=== PATIENT | female | born 1985 | race Caucasian/White ===

== ENCOUNTER 2023-02-09 14:35 | Inpatient (IN) | payer OTHER ==
[2023-02-09 15:03] VITALS: BMI 18.3
[2023-02-09] MEDS ORDERED: BISMUTH SUBSALICYLATE 524 MG/30 ML PO PRN (19:51)
[2023-02-09] MEDS ORDERED: ACETAMINOPHEN 325 MG TABLET (FP) PO PRN (19:51)
[2023-02-09] MEDS ORDERED: POLYETHYLENE GLYCOL (HEALTHYLAX) 3350 17 GM PACKET PO PRN (19:51)
[2023-02-09] MEDS ORDERED: NICOTINE POLACRILEX 4 MG GUM BUC PRN (19:51)
[2023-02-09] MEDS ORDERED: MAG HYDROX/AL HYDROX/SIMETH 30 ML UNIT-DOSE CUP PO PRN (19:51)
[2023-02-09] MEDS ORDERED: DICYCLOMINE HCL 10 MG CAPSULE PO PRN (19:51)
[2023-02-09] MEDS ORDERED: MAGNESIUM HYDROX 2400MG/30ML ORAL SUSPENSION 30 ML CUP PO PRN (19:51)
[2023-02-09] MEDS ORDERED: NALOXONE HCL (KLOXXADO) 8 MG SPRAY NS PRN (19:51)
[2023-02-09] MEDS ORDERED: BENZOCAINE/MENTHOL (CHLORASEPTIC ) LOZENGE MM PRN (19:51)
[2023-02-09] MEDS ORDERED: BENZONATATE 200 MG CAPSULE PO PRN (19:51)
[2023-02-09] MEDS ORDERED: NALOXONE HCL 0.4 MG/ML VIAL IM PRN (19:51)
[2023-02-09] MEDS ORDERED: LOPERAMIDE HCL 2 MG CAPSULE PO PRN (19:51)
[2023-02-09] MEDS ORDERED: IBUPROFEN 400 MG TABLET (FP) PO PRN (19:51)
[2023-02-09] MEDS ORDERED: guaiFENesin 600 MG TABLET.ER (FP) PO PRN (19:51)
[2023-02-09] MEDS ORDERED: methaDONE HCL 10 MG TABLET (FOR DETOX USE ONLY) PO ONE (20:39)
[2023-02-09] MEDS ORDERED: cloNIDine HCL 0.1 MG TABLET PO PRN (20:39)
[2023-02-09] MEDS ORDERED: methaDONE HCL 10 MG TABLET (FOR DETOX USE ONLY) ONE (21:10)
[2023-02-09] MEDS: METHOCARBAMOL 500 MG TABLET PO PRN (23:13)
[2023-02-09] MEDS: MELATONIN 5 MG TABLETS PO SCH (23:13)
[2023-02-09] MEDS: clonazePAM 0.5 MG ODT TABLETS SL PRN (23:13)
[2023-02-09] MEDS: THIAMINE HCL 100 MG TABLET (FP) PO SCH (23:13)
[2023-02-10] MEDS: IBUPROFEN 600 MG TABLET (FP) PO PRN ×2 (08:51→17:50)
[2023-02-10] MEDS: METHOCARBAMOL 500 MG TABLET PO PRN (08:51)
[2023-02-10] MEDS: PRENATAL VITAMINS W/ FOLIC ACID TABLET (FP) PO SCH (10:10)
[2023-02-10] MEDS: NICOTINE 21 MG/24 HOURS TOPICAL PATCH TD SCH (10:10)
[2023-02-10] MEDS: clonazePAM 0.5 MG ODT TABLETS SL PRN ×2 (12:34→19:26)
[2023-02-10 13:15] LABS: POTASSIUM 3.9 mmol/L (3.5-5.1)
[2023-02-10 13:16] LABS: HEMATOCRIT 40.8 % (32.4-45.2); HEMOGLOBIN 13.2 GM/dL (10.7-15.3); MCH 29.8 pg (25.7-33.7); MCHC 32.4 g/dl (32.0-36.0); MEAN CELL VOLUME 91.9 fl (80-96); MEAN PLT VOLUME 8.9 fl (7.5-11.1); PLATELET COUNT 410 10^3/uL (134-434); RBC 4.44 M/mm3 (3.60-5.2); RDW 13.7 % (11.6-15.6); WHITE BLOOD COUNT 15.9 K/mm3 (4.0-10.0)
[2023-02-10 13:20] LABS: BLOOD UREA NITROGEN 15.3 mg/dL (7-18)
[2023-02-10 13:21] LABS: ALBUMIN 3.2 g/dl (3.4-5.0)
[2023-02-10 13:22] LABS: CALCIUM 8.5 mg/dL (8.5-10.1)
[2023-02-10 13:25] LABS: BILIRUBIN,TOTAL 0.3 mg/dL (0.2-1); TOT PROT 6.6 g/dl (6.4-8.2)
[2023-02-10 21:01] VITALS: RESP 16
[2023-02-10] MEDS: MELATONIN 5 MG TABLETS PO SCH (21:04)
[2023-02-10] MEDS: THIAMINE HCL 100 MG TABLET (FP) PO SCH (21:04)
[2023-02-10] MEDS ORDERED: QUEtiapine FUMARATE 50 MG TABLET PO SCH (22:00)
[2023-02-11] MEDS: IBUPROFEN 600 MG TABLET (FP) PO PRN (05:26)
[2023-02-11] MEDS ORDERED: methaDONE HCL 10 MG TABLET (FOR DETOX USE ONLY) PO ONE (10:00)
[2023-02-11] MEDS: NICOTINE 21 MG/24 HOURS TOPICAL PATCH TD SCH (10:31)
[2023-02-11] MEDS: PRENATAL VITAMINS W/ FOLIC ACID TABLET (FP) PO SCH (10:31)
[2023-02-11 11:27] VITALS: BP 106/68; PULSE 82; TEMP 97.7
[2023-02-13] MEDS ORDERED: methaDONE HCL 10 MG TABLET (FOR DETOX USE ONLY) PO ONE (10:00)
== END 2023-02-11 13:42 | disposition left against medical advice (07) | DRG 894 ==
LOC: YASAS 14:35 → Y3N 22:18
PROVIDERS: ADMIT Allergy & Immunology; ATTEND Surgery
PROC: HZ2ZZZZ Detoxification Services for Substance Abuse Treatment (ICD-10-PCS; principal; 2023-02-09)
DX: F11.23 Opioid dependence with withdrawal (principal); F14.20 Cocaine dependence, uncomplicated; Z68.1 Body mass index [BMI] 19.9 or less, adult; Z59.00 Homelessness unspecified; F17.210 Nicotine dependence, cigarettes, uncomplicated; F19.24 Other psychoactive substance dependence with psychoactive substance-induced mood disorder; F32.A Depression, unspecified; G47.00 Insomnia, unspecified; R63.4 Abnormal weight loss; Z86.19 Personal history of other infectious and parasitic diseases; Z56.0 Unemployment, unspecified
CPT/HCPCS: 36415; 80053; 81025; 85027; 87635; 93005; 93010

== ENCOUNTER 2024-07-17 12:30 | Inpatient (IN) | payer OTHER ==
[2024-07-17 12:46] VITALS: BMI 21.1
[2024-07-17] MEDS ORDERED: POLYETHYLENE GLYCOL (HEALTHYLAX) 3350 17 GM PACKET PO PRN (13:32)
[2024-07-17] MEDS ORDERED: BENZOCAINE/MENTHOL (CHLORASEPTIC ) LOZENGE MM PRN (13:32)
[2024-07-17] MEDS ORDERED: DICYCLOMINE HCL 10 MG CAPSULE PO PRN (13:32)
[2024-07-17] MEDS ORDERED: guaiFENesin 600 MG TABLET.ER (FP) PO PRN (13:32)
[2024-07-17] MEDS ORDERED: NALOXONE (NARCAN) HCL 4 MG/0.1 ML SPRAY NS PRN (13:32)
[2024-07-17] MEDS ORDERED: BENZONATATE 200 MG CAPSULE PO PRN (13:32)
[2024-07-17] MEDS ORDERED: NICOTINE POLACRILEX 2 MG GUM BUC PRN (13:32)
[2024-07-17] MEDS ORDERED: MAGNESIUM HYDROX 2400MG/30ML ORAL SUSPENSION 30 ML CUP PO PRN (13:32)
[2024-07-17] MEDS ORDERED: IBUPROFEN 400 MG TABLET (FP) PO PRN (13:32)
[2024-07-17] MEDS ORDERED: BISMUTH SUBSALICYLATE 524 MG/30 ML PO PRN (13:32)
[2024-07-17] MEDS ORDERED: P-EPHED 60MG/TRIPROLIDI 2.5MG TABLET PO PRN (13:32)
[2024-07-17] MEDS ORDERED: IBUPROFEN 600 MG TABLET (FP) PO PRN (13:32)
[2024-07-17] MEDS ORDERED: NICOTINE POLACRILEX 2 MG LOZENGE BC PRN (13:32)
[2024-07-17] MEDS ORDERED: LOPERAMIDE HCL 2 MG CAPSULE PO PRN (13:32)
[2024-07-17] MEDS ORDERED: ACETAMINOPHEN 325 MG TABLET (FP) PO PRN (13:32)
[2024-07-17] MEDS ORDERED: ONDANSETRON *ODT* 4 MG TABLET SL PRN (13:32)
[2024-07-17] MEDS ORDERED: MAG HYDROX/AL HYDROX/SIMETH 30 ML UNIT-DOSE CUP PO PRN (13:32)
[2024-07-17] MEDS: cloNIDine HCL 0.1 MG TABLET PO PRN (22:26)
[2024-07-17] MEDS: methaDONE HCL 10 MG TABLET PO PRN (22:26)
[2024-07-17] MEDS: diazePAM 5 MG TABLET PO PRN (22:26)
[2024-07-17] MEDS: MELATONIN 5 MG TABLETS PO SCH (22:27)
[2024-07-17] MEDS: THIAMINE 100 MG TABLET PO SCH (22:27)
[2024-07-18] MEDS: METHOCARBAMOL 500 MG TABLET PO PRN (05:04)
[2024-07-18] MEDS: methaDONE 40 MG, methaDONE 10 MG PO ONE (09:56)
[2024-07-18] MEDS: PRENATAL VITAMINS W/ FOLIC ACID TABLET (FP) PO SCH (09:57)
[2024-07-18] MEDS: SODIUM PHOSPHATE/NA BIPHOS 133 ML ENEMA RC ONE (11:45)
[2024-07-18] MEDS: hydrOXYzine PAMOATE 25 MG CAPSULE (FP) PO PRN (17:27)
[2024-07-18] MEDS: QUEtiapine FUMARATE 50 MG TABLET PO SCH (22:28)
[2024-07-19] MEDS: methaDONE 40 MG, methaDONE 20 MG PO ONE (09:24)
[2024-07-19] MEDS: cloNIDine HCL 0.1 MG TABLET PO PRN (12:18)
[2024-07-19] MEDS: METHOCARBAMOL 500 MG TABLET PO PRN (12:18)
[2024-07-19] MEDS: MINERAL OIL ENEMA 133 ML ENEMA RC ONE (12:25)
[2024-07-20] MEDS: methaDONE 40 MG, methaDONE 30 MG PO ONE ×2 (11:00→13:03)
[2024-07-20] MEDS: MAGNESIUM CITRATE 300 ML BOTTLE PO ONE (11:35)
[2024-07-20] MEDS ORDERED: methaDONE HCL 10 MG TABLET PO ONE (12:37)
[2024-07-20] MEDS: BISACODYL 10 MG SUPP.RECT PR ONE (16:47)
[2024-07-20] MEDS ORDERED: SIMETHICONE 80 MG TAB.CHEW (FP) PO PRN (18:10)
[2024-07-20] MEDS: LACTULOSE 20 GM/30 ML UDC (FOR ORAL USE ONLY) PO ONE (20:09)
[2024-07-20] MEDS: diazePAM 5 MG TABLET PO ONE (23:05)
[2024-07-20] MEDS: METHYLNALTREXONE BROMIDE 8 MG/0.4 ML SYRINGE SQ ONE (23:16)
[2024-07-21] MEDS: methaDONE 40 MG, methaDONE 20 MG PO ONE (09:04)
[2024-07-21] MEDS: diazePAM 5 MG TABLET PO PRN (09:25)
[2024-07-21] MEDS ORDERED: methaDONE HCL 40 MG DISPERSABLE TABLET PO ONE ×2 (10:00)
[2024-07-21] MEDS: LACTULOSE 20 GM/30 ML UDC (FOR ORAL USE ONLY) PO SCH (13:10)
[2024-07-21 18:25] LABS: HEMATOCRIT 33.8 % (34.1-44.9); HEMOGLOBIN 10.2 g/dL (11.2-15.7); MCHC 30.2 g/dl (32.2-35.5); MEAN CELL VOLUME 91.6 fl (79.4-94.8); MEAN PLT VOLUME 10.2 fl (9.4-12.3); PLATELET COUNT 317 x10^3/uL (182-369); POTASSIUM 4.5 mmol/L (3.5-5.1)
[2024-07-21 18:31] LABS: BLOOD UREA NITROGEN 19.7 mg/dL (7-18); CALCIUM 9.4 mg/dL (8.5-10.1)
[2024-07-21 18:35] LABS: BILIRUBIN,TOTAL 0.3 mg/dL (0.2-1); CREATININE 0.8 mg/dL (0.55-1.3); TOT PROT 7.1 g/dl (6.4-8.2)
[2024-07-21] MEDS: LACTULOSE 20 GM/30 ML UDC (FOR ORAL USE ONLY) PO ONE (18:44)
[2024-07-21] MEDS: METHYLNALTREXONE BROMIDE 8 MG/0.4 ML SYRINGE SQ ONE (19:18)
[2024-07-22] MEDS ORDERED: methaDONE HCL 10 MG TABLET PO ONE (08:15)
[2024-07-22] MEDS: methaDONE 40 MG, methaDONE 20 MG PO ONE (09:11)
[2024-07-22] MEDS ORDERED: methaDONE 80 MG, methaDONE 10 MG PO ONE (10:00)
[2024-07-22] MEDS: diazePAM 5 MG TABLET PO ONE (10:09)
[2024-07-22 21:12] VITALS: RESP 16; TEMP 97.7
[2024-07-23] MEDS ORDERED: methaDONE HCL 10 MG TABLET PO SCH (06:00)
[2024-07-23 06:26] VITALS: BP 97/73; PULSE 78
[2024-07-23] MEDS: methaDONE 40 MG, methaDONE 10 MG PO SCH (06:26)
[2024-07-23] MEDS: BISACODYL 10 MG SUPP.RECT PR ONE (12:44)
[2024-07-23] MEDS: MINERAL OIL ENEMA 133 ML ENEMA RC ONE (16:33)
[2024-07-23] MEDS ORDERED: diazePAM 5 MG TABLET PO ONE (20:00)
== END 2024-07-23 18:30 | disposition left against medical advice (07) | DRG 894 ==
LOC: YASAS 12:30 → Y3N 15:40 → Y5N 07-22 12:09 → Y3NR 07-22 23:55
PROVIDERS: ADMIT Allergy & Immunology; ATTEND Psychiatry & Neurology Pain Medicine
PROC: HZ42ZZZ Group Counseling for Substance Abuse Treatment, Cognitive-Behavioral (ICD-10-PCS; principal; 2024-07-17)
DX: F11.20 Opioid dependence, uncomplicated (principal); F14.20 Cocaine dependence, uncomplicated; F12.20 Cannabis dependence, uncomplicated; F17.210 Nicotine dependence, cigarettes, uncomplicated; F31.9 Bipolar disorder, unspecified; F43.10 Post-traumatic stress disorder, unspecified; F60.3 Borderline personality disorder; F41.9 Anxiety disorder, unspecified; Z21 Asymptomatic human immunodeficiency virus [HIV] infection status
CPT/HCPCS: 36415; 74177-TC; 76705-TC; 80053; 80305; 80307; 81025; 83690; 85027; 86593; 86780; 86803; 87389; 87522; 87811; 93005; 93010; 99285-25